=== PATIENT | male | born 1945 | race Native Hawaiian/Other Pacific Islander ===

== ENCOUNTER 2016-05-26 09:28 | Outpatient (CLI) | payer OTHER ==
[~2016-05-26] VITALS: Ht 177.8 cm; Wt 88.5 kg
[2016-05-26 09:35] VITALS: BP 160/87; TEMP 97.8
== END 2016-05-26 20:10 | disposition home or self-care (01) ==
LOC: INF 09:28
DX: I87.2 Venous insufficiency (chronic) (peripheral) (principal)
CPT/HCPCS: 96374; J1642

== ENCOUNTER 2016-06-14 08:50 | Outpatient (CLI) | payer OTHER ==
[2016-06-14 11:20] LABS: PLATELET COUNT 165 K/uL (142-355)
[2016-06-14 11:45] LABS: POTASSIUM 5.2 mmol/L (3.6-5.2)
== END 2016-06-14 20:10 | disposition home or self-care (01) ==
LOC: INF 08:50 → LAB 08:50 → US 08:50 → INF 20:10
PROVIDERS: Emergency Medicine
DX: R31.9 Hematuria, unspecified (principal); D63.1 Anemia in chronic kidney disease; E87.70 Fluid overload, unspecified; E87.5 Hyperkalemia; E78.4 Other hyperlipidemia; I10 Essential (primary) hypertension; E87.1 Hypo-osmolality and hyponatremia; E79.0 Hyperuricemia without signs of inflammatory arthritis and tophaceous disease
CPT/HCPCS: 80061; 80069; 81000; 82043; 82570; 82728; 83516; 83540; 83550; 84155; 84550; 85027; 85651; 86140; 86255; 96374

== ENCOUNTER 2016-07-27 09:59 | Outpatient (CLI) | payer OTHER ==
[~2016-07-27] VITALS: Ht 177.8 cm; Wt 88.5 kg
[2016-07-27 10:20] VITALS: BP 122/76; TEMP 98.3
== END 2016-07-27 10:59 | disposition home or self-care (01) ==
LOC: INF 09:59
DX: I87.2 Venous insufficiency (chronic) (peripheral) (principal)
CPT/HCPCS: 96523; J1642

== ENCOUNTER 2016-09-30 10:07 | Outpatient (CLI) | payer OTHER ==
[2016-09-30 14:58] VITALS: BP 128/72; TEMP 98.1
== END 2016-09-30 10:36 | disposition home or self-care (01) ==
LOC: INF 10:07
DX: I87.2 Venous insufficiency (chronic) (peripheral) (principal)
CPT/HCPCS: 96374; J1642

== ENCOUNTER 2016-11-11 09:50 | Outpatient (CLI) | payer OTHER ==
[2016-11-11 10:40] VITALS: BP 140/77; TEMP 97.6
== END 2016-11-11 10:35 | disposition home or self-care (01) ==
LOC: INF 09:50
DX: I87.2 Venous insufficiency (chronic) (peripheral) (principal)
CPT/HCPCS: 96523; J1642

== ENCOUNTER 2016-12-23 10:05 | Outpatient (CLI) | payer OTHER ==
[~2016-12-23] VITALS: Ht 177.8 cm; Wt 88.5 kg
[2016-12-23 10:40] VITALS: BP 140/73; TEMP 97.9
== END 2016-12-23 19:00 | disposition home or self-care (01) ==
LOC: INF 10:05
DX: I87.2 Venous insufficiency (chronic) (peripheral) (principal)
CPT/HCPCS: 96523; J1642

== ENCOUNTER 2017-02-03 09:52 | Outpatient (CLI) | payer OTHER ==
[2017-02-03 10:15] VITALS: BP 148/78; TEMP 97.6
== END 2017-02-03 10:20 | disposition home or self-care (01) ==
LOC: INF 09:52
DX: I87.2 Venous insufficiency (chronic) (peripheral) (principal); D63.1 Anemia in chronic kidney disease
CPT/HCPCS: 96523

== ENCOUNTER 2017-02-17 10:12 | Outpatient (CLI) | payer OTHER ==
[2017-02-17 11:01] LABS: PLATELET COUNT 228 K/uL (142-355)
[2017-02-17 11:41] LABS: POTASSIUM 5.4 mmol/L (3.6-5.2)
== END 2017-02-17 13:30 | disposition home or self-care (01) ==
LOC: INF 10:12
PROVIDERS: Internal Medicine
DX: E87.5 Hyperkalemia (principal); I10 Essential (primary) hypertension; N18.4 Chronic kidney disease, stage 4 (severe); R31.9 Hematuria, unspecified; E79.0 Hyperuricemia without signs of inflammatory arthritis and tophaceous disease
CPT/HCPCS: 36591; 80048; 80061; 80076; 81000; 82043; 82570; 82652; 82728; 83036; 83516; 83540; 83550; 83970; 84100; 84155; 84550; 85027; 85651; 86039; 86140; 86225; 86235

== ENCOUNTER 2017-03-31 09:39 | Outpatient (CLI) | payer OTHER ==
[2017-03-31 10:05] VITALS: BP 125/76; TEMP 98
== END 2017-03-31 10:05 | disposition home or self-care (01) ==
LOC: INF 09:39
DX: I87.2 Venous insufficiency (chronic) (peripheral) (principal)
CPT/HCPCS: 96523

== ENCOUNTER 2017-05-12 09:30 | Outpatient (CLI) | payer OTHER | END 2017-05-12 10:02 | disposition home or self-care (01) | LOC: INF 09:30 | DX: I87.2 Venous insufficiency (chronic) (peripheral) (principal) | CPT/HCPCS: 96374; J1642 ==

== ENCOUNTER 2017-05-23 06:45 | Emergency (ER) | payer OTHER ==
[~2017-05-23] VITALS: Ht 177.8 cm; Wt 90.7 kg
[2017-05-23 06:55] VITALS: TEMP 97.9
[2017-05-23 07:36] LABS: PLATELET COUNT 113 K/uL (142-355)
[2017-05-23 07:52] LABS: POTASSIUM 5.1 mmol/L (3.6-5.2)
[2017-05-23 08:36] VITALS: BP 144/81
== END 2017-05-23 08:38 | disposition home or self-care (01) ==
LOC: ED 06:45
DX: J06.9 Acute upper respiratory infection, unspecified (principal); N04.9 Nephrotic syndrome with unspecified morphologic changes
CPT/HCPCS: 36415; 80053; 83880; 85027; 87081; 87804; 87880; 94664; 96360; 96361; 99284; J1642

== ENCOUNTER 2017-05-27 19:46 | Inpatient (IN) | payer OTHER ==
[~2017-05-27] VITALS: Ht 177.8 cm; Wt 87.7 kg
[2017-05-27 19:55] VITALS: BP 144/85; TEMP 97.5
[2017-05-27 20:55] VITALS: BP 142/88
[2017-05-27] MEDS ORDERED: COATED ASPIRIN325 MG PO (21:21)
[2017-05-27] MEDS ORDERED: LIPITOR80 MG PO (21:22)
[2017-05-27] MEDS ORDERED: NEXIUM20 M1 PO (21:22)
[2017-05-27] MEDS ORDERED: CALC ACETATE668 MG (21:23)
[2017-05-27] MEDS ORDERED: CARV3.12 PO (21:23)
[2017-05-27] MEDS ORDERED: MAGNESIUM400 MG OR (21:24)
[2017-05-27] MEDS ORDERED: MAGNESIUM400 M1 PO (21:24)
[2017-05-27] MEDS ORDERED: SAW PALMETTO160 M1 OR (21:24)
[2017-05-27] MEDS ORDERED: D32000 UNI1 OR (21:24)
[2017-05-27] MEDS ORDERED: CITA20TA2 PO (21:25)
[2017-05-27] MEDS ORDERED: ALLO100T22 PO (21:26)
[2017-05-27] MEDS ORDERED: ALPR0.2566 PO (21:26)
[2017-05-27] MEDS ORDERED: ZOFRAN8 MG OR (21:27)
[2017-05-27] MEDS ORDERED: TYLENOL325 MG OR (21:27)
[2017-05-27] MEDS ORDERED: ANTIHISTAMIN25 MG PO (21:28)
[2017-05-27 21:55] VITALS: BP 138/86
[2017-05-27 22:12] LABS: PLATELET COUNT 312 K/uL (142-355)
[2017-05-27 22:34] LABS: SODIUM 130 mmol/L (136-145)
[2017-05-27 22:41] LABS: POTASSIUM 6.6 mmol/L (3.6-5.2)
[2017-05-27 23:50] VITALS: BP 143/89
[2017-05-28 01:10] VITALS: BP 141/77; TEMP 97.7; Ht 177.8 cm; Wt 87.7 kg
[2017-05-28] MEDS ORDERED: CELLCEPT500 MG PO (03:28)
[2017-05-28] MEDS ORDERED: DOXYCYCL HYC100 MG OR (03:29)
[2017-05-28 04:00] VITALS: BP 134/80; TEMP 97.9
[2017-05-28 05:06] LABS: PLATELET COUNT 323 K/uL (142-355)
[2017-05-28 05:40] LABS: POTASSIUM 6.4 mmol/L (3.6-5.2)
[2017-05-28 11:18] VITALS: BP 142/76; TEMP 98.4
[2017-05-28 19:31] LABS: POTASSIUM 3.8 mmol/L (3.6-5.2)
[2017-05-28 20:00] VITALS: BP 185/98; TEMP 98.3
[2017-05-29] VITALS: BP 171/93; TEMP 98.5
[2017-05-29 04:00] VITALS: BP 167/90; TEMP 97.5
[2017-05-29 08:13] VITALS: BP 146/87; TEMP 97.8
[2017-05-29 12:48] LABS: POTASSIUM 3.7 mmol/L (3.6-5.2)
[2017-05-29 12:53] VITALS: BP 155/77; TEMP 98
[2017-05-29 20:00] VITALS: BP 122/77; TEMP 97.8
[2017-05-30] VITALS: BP 158/85; TEMP 98
[2017-05-30 04:00] VITALS: BP 144/82; TEMP 97.5
[2017-05-30 08:51] VITALS: BP 150/82; TEMP 98.8
[2017-05-30 13:38] VITALS: BP 165/92; TEMP 97
== END 2017-05-30 14:52 | disposition home or self-care (01) | DRG 191 ==
LOC: ED 19:46 → MED/SURG 23:01
PROVIDERS: Family Medicine; ADMIT Specialist
DX: J44.0 Chronic obstructive pulmonary disease with (acute) lower respiratory infection (principal); N18.4 Chronic kidney disease, stage 4 (severe); E87.5 Hyperkalemia; I12.9 Hypertensive chronic kidney disease with stage 1 through stage 4 chronic kidney disease, or unspecified chronic kidney disease; D64.89 Other specified anemias; K21.9 Gastro-esophageal reflux disease without esophagitis; J20.9 Acute bronchitis, unspecified; R41.0 Disorientation, unspecified
CPT/HCPCS: 36415; 36591; 36600; 80048; 80053; 81000; 82805; 83735; 83880; 84100; 84484; 85027; 87804; 93005; 94640; 94664; 94760; 96372; 99283; J1644; J2930; J3490

== ENCOUNTER 2017-06-08 09:18 | Outpatient (CLI) | payer OTHER ==
[~2017-06-08 09:18] MED LIST: ALLO100T22 PO; ALPR0.2566 PO; ANTIHISTAMIN25 MG PO; CALC ACETATE668 MG; CARV3.12 PO; CELLCEPT500 MG PO; CITA20TA2 PO; COATED ASPIRIN325 MG PO; D32000 UNI1 OR; DOXYCYCL HYC100 MG OR; LIPITOR80 MG PO; MAGNESIUM400 M1 PO; MAGNESIUM400 MG OR; NEXIUM20 M1 PO; SAW PALMETTO160 M1 OR; TYLENOL325 MG OR; ZOFRAN8 MG OR
[2017-06-08 10:25] LABS: PLATELET COUNT 333 K/uL (142-355)
[2017-06-08 10:59] LABS: POTASSIUM 4.8 mmol/L (3.6-5.2)
== END 2017-06-08 19:20 | disposition home or self-care (01) ==
LOC: INF 09:18 → LABW 09:18 → INF 19:20
PROVIDERS: Emergency Medicine
DX: I87.2 Venous insufficiency (chronic) (peripheral) (principal); E11.9 Type 2 diabetes mellitus without complications; E87.79 Other fluid overload; N00.8 Acute nephritic syndrome with other morphologic changes; E79.0 Hyperuricemia without signs of inflammatory arthritis and tophaceous disease
CPT/HCPCS: 36591; 80053; 80061; 81000; 82043; 82570; 82728; 83516; 83540; 83550; 84155; 84550; 85027; 86140; 86255; 96374; J1642

== ENCOUNTER 2017-07-20 09:51 | Outpatient (CLI) | payer OTHER ==
[2017-07-20 09:56] VITALS: BP 123/68; TEMP 97.8
== END 2017-07-20 10:16 | disposition home or self-care (01) ==
LOC: INF 09:51
DX: I87.2 Venous insufficiency (chronic) (peripheral) (principal)
CPT/HCPCS: 96523

== ENCOUNTER 2017-07-27 11:17 | Day surgery (SDC) | payer OTHER | END 2017-07-27 16:02 | disposition home or self-care (01) | LOC: OR 11:17 | PROC: 0DJD8ZZ Inspection of Lower Intestinal Tract, Via Natural or Artificial Opening Endoscopic (ICD-10-PCS; principal; 2017-07-27) | DX: K57.30 Diverticulosis of large intestine without perforation or abscess without bleeding (principal); K64.8 Other hemorrhoids; Z12.11 Encounter for screening for malignant neoplasm of colon; Z80.0 Family history of malignant neoplasm of digestive organs; Z87.898 Personal history of other specified conditions | CPT/HCPCS: J1642; J2001; J2704 ==

== ENCOUNTER 2017-08-31 09:46 | Outpatient (CLI) | payer OTHER | END 2017-08-31 10:31 | disposition home or self-care (01) | LOC: INF 09:46 | DX: I87.2 Venous insufficiency (chronic) (peripheral) (principal) | CPT/HCPCS: 96374 ==

== ENCOUNTER 2017-10-12 09:52 | Outpatient (CLI) | payer OTHER | END 2017-10-12 19:21 | disposition home or self-care (01) | LOC: INF 09:52 | DX: I87.2 Venous insufficiency (chronic) (peripheral) (principal) | CPT/HCPCS: 96374 ==

== ENCOUNTER 2017-10-31 09:45 | Outpatient (CLI) | payer OTHER ==
[2017-10-31 10:59] LABS: PLATELET COUNT 241 K/uL (142-355)
[2017-10-31 11:32] LABS: POTASSIUM 6.1 mmol/L (3.6-5.2)
== END 2017-10-31 20:20 | disposition home or self-care (01) ==
LOC: INF 09:45
PROVIDERS: Internal Medicine Nephrology
DX: I87.2 Venous insufficiency (chronic) (peripheral) (principal); E11.9 Type 2 diabetes mellitus without complications; E87.5 Hyperkalemia; D63.1 Anemia in chronic kidney disease
CPT/HCPCS: 36591; 80061; 80069; 81000; 82043; 82570; 82728; 83516; 83540; 83550; 84155; 84550; 85027; 86140; 86255; 96374

== ENCOUNTER 2017-11-21 09:39 | Outpatient (CLI) | payer OTHER ==
[2017-11-21 09:50] VITALS: BP 148/90; TEMP 98.8
[2017-11-21 10:44] LABS: POTASSIUM 4.4 mmol/L (3.6-5.2)
== END 2017-11-21 22:00 | disposition home or self-care (01) ==
LOC: INF 09:39
PROVIDERS: Family Medicine
DX: I12.9 Hypertensive chronic kidney disease with stage 1 through stage 4 chronic kidney disease, or unspecified chronic kidney disease (principal); N18.4 Chronic kidney disease, stage 4 (severe); I87.2 Venous insufficiency (chronic) (peripheral)
CPT/HCPCS: 36591; 80069; 96374

== ENCOUNTER 2018-01-02 09:41 | Outpatient (CLI) | payer OTHER ==
[2018-01-02 09:50] VITALS: BP 124/73; TEMP 98.3
== END 2018-01-02 23:21 | disposition home or self-care (01) ==
LOC: INF 09:41
DX: I87.2 Venous insufficiency (chronic) (peripheral) (principal)
CPT/HCPCS: 96523

== ENCOUNTER 2018-02-13 09:18 | Outpatient (CLI) | payer OTHER | END 2018-02-13 19:51 | disposition home or self-care (01) | LOC: INF 09:18 | DX: I87.2 Venous insufficiency (chronic) (peripheral) (principal) | CPT/HCPCS: 96374; J1642 ==

== ENCOUNTER 2018-03-28 10:37 | Outpatient (CLI) | payer OTHER ==
[2018-03-28 11:37] LABS: PLATELET COUNT 238 K/uL (142-355)
== END 2018-03-28 21:26 | disposition home or self-care (01) ==
LOC: INF 10:37
PROVIDERS: Internal Medicine
DX: I10 Essential (primary) hypertension (principal); E78.00 Pure hypercholesterolemia, unspecified; N18.9 Chronic kidney disease, unspecified; Z00.00 Encounter for general adult medical examination without abnormal findings; Z12.5 Encounter for screening for malignant neoplasm of prostate; Z43.8 Encounter for attention to other artificial openings
CPT/HCPCS: 80053; 80061; 81000; 84153; 84439; 84443; 84550; 85027; 96374; J1642

== ENCOUNTER 2018-04-05 09:39 | Outpatient (CLI) | payer OTHER ==
[2018-04-05 09:48] VITALS: BP 157/81; TEMP 98
[2018-04-05 10:41] LABS: POTASSIUM 4.3 mmol/L (3.6-5.2)
== END 2018-04-05 10:25 | disposition home or self-care (01) ==
LOC: INF 09:39
PROVIDERS: Emergency Medicine
DX: N18.4 Chronic kidney disease, stage 4 (severe) (principal)
CPT/HCPCS: 36415; 36591; 80048; 96374

== ENCOUNTER 2018-04-12 09:10 | Outpatient (CLI) | payer OTHER ==
[2018-04-12 09:30] VITALS: BP 161/82; TEMP 97.9
== END 2018-04-12 10:10 | disposition home or self-care (01) ==
LOC: INF 09:10
PROVIDERS: Emergency Medicine
DX: M18.4 Other bilateral secondary osteoarthritis of first carpometacarpal joints (principal); E87.5 Hyperkalemia
CPT/HCPCS: 36415; 36591; 80048; 96374

== ENCOUNTER 2018-04-20 08:29 | Outpatient (CLI) | payer OTHER | END 2018-04-20 19:20 | disposition home or self-care (01) | LOC: CT 08:29 | DX: Z12.2 Encounter for screening for malignant neoplasm of respiratory organs (principal); J44.9 Chronic obstructive pulmonary disease, unspecified ==

== ENCOUNTER 2018-05-16 09:48 | Outpatient (CLI) | payer OTHER ==
[2018-05-16 10:20] VITALS: BP 145/86; TEMP 98.1
[2018-05-16 10:54] LABS: POTASSIUM 5.6 mmol/L (3.6-5.2)
== END 2018-05-16 10:25 | disposition home or self-care (01) ==
LOC: INF 09:48
PROVIDERS: Family Medicine
DX: N18.9 Chronic kidney disease, unspecified (principal); N18.4 Chronic kidney disease, stage 4 (severe); R31.9 Hematuria, unspecified; E87.5 Hyperkalemia; E78.5 Hyperlipidemia, unspecified; I10 Essential (primary) hypertension; E87.1 Hypo-osmolality and hyponatremia; I87.2 Venous insufficiency (chronic) (peripheral)
CPT/HCPCS: 36591; 80048; 82043; 82570; 84155; 96375

== ENCOUNTER 2018-06-22 09:03 | Outpatient (CLI) | payer OTHER ==
[2018-06-22 11:28] LABS: PLATELET COUNT 236 K/uL (142-355)
[2018-06-22 11:50] LABS: POTASSIUM 5.3 mmol/L (3.6-5.2)
== END 2018-06-22 10:47 | disposition home or self-care (01) ==
LOC: INF 09:03
PROVIDERS: Internal Medicine Nephrology
DX: I87.2 Venous insufficiency (chronic) (peripheral) (principal); N18.9 Chronic kidney disease, unspecified
CPT/HCPCS: 36591; 80061; 80069; 81000; 82043; 82570; 82728; 83516; 83540; 83550; 83930; 83935; 84155; 84300; 84550; 85027; 85651; 86140; 86255; 96374; J1642

== ENCOUNTER 2018-07-04 14:48 | Outpatient (CLI) | payer OTHER | END 2018-07-04 19:42 | disposition home or self-care (01) | LOC: US 14:48 | DX: N18.4 Chronic kidney disease, stage 4 (severe) (principal) ==

== ENCOUNTER 2018-07-10 11:33 | Outpatient (CLI) | payer OTHER | END 2018-07-10 22:40 | disposition home or self-care (01) | LOC: RAD 11:33 | DX: J40 Bronchitis, not specified as acute or chronic (principal) ==

== ENCOUNTER 2018-07-13 06:55 | Emergency (ER) | payer OTHER ==
[~2018-07-13] VITALS: Ht 180.3 cm; Wt 81.6 kg
[2018-07-13 06:55] VITALS: TEMP 97.5
[2018-07-13 07:33] LABS: PLATELET COUNT 303 K/uL (142-355)
[2018-07-13] MEDS ORDERED: DOCU100C10 PO (07:36)
[2018-07-13] MEDS ORDERED: PROFERRIN- PO (07:36)
[2018-07-13] MEDS ORDERED: DILT-XR180 MG PO (07:37)
[2018-07-13] MEDS ORDERED: [UNRECOGNIZED DRUG - OTHER] PO (07:37)
[2018-07-13] MEDS ORDERED: SODIUM BICARBONATE PO (07:38)
[2018-07-13 07:44] LABS: POTASSIUM 4.3 mmol/L (3.6-5.2)
[2018-07-13 10:05] VITALS: BP 156/84
== END 2018-07-13 10:05 | disposition short-term general hospital (02) ==
LOC: ED 06:55
PROVIDERS: Emergency Medicine
DX: R41.82 Altered mental status, unspecified (principal); N28.9 Disorder of kidney and ureter, unspecified
CPT/HCPCS: 36415; 80053; 80307; 81000; 85027; 93005; 96360; 99283

== ENCOUNTER 2018-07-13 10:06 | Outpatient (CLI) | payer OTHER ==
[~2018-07-13 10:06] MED LIST changes: +DILT-XR180 MG PO; +DOCU100C10 PO; +PROFERRIN- PO; +SODIUM BICARBONATE PO; +[UNRECOGNIZED DRUG - OTHER] PO
== END 2018-07-13 11:15 | disposition short-term general hospital (02) ==
LOC: AMB 10:06
DX: R44.2 Other hallucinations (principal); N18.9 Chronic kidney disease, unspecified; R41.82 Altered mental status, unspecified
CPT/HCPCS: A0425; A0427

== ENCOUNTER 2018-08-31 09:17 | Outpatient (CLI) | payer OTHER ==
[2018-08-31 09:25] VITALS: BP 146/77; TEMP 98.7
[2018-08-31 10:07] LABS: POTASSIUM 5.2 mmol/L (3.6-5.2)
== END 2018-08-31 09:45 | disposition home or self-care (01) ==
LOC: INF 09:17
PROVIDERS: Internal Medicine Nephrology
DX: I87.2 Venous insufficiency (chronic) (peripheral) (principal); N18.4 Chronic kidney disease, stage 4 (severe); K64.0 First degree hemorrhoids
CPT/HCPCS: 36591; 80048; 82272; 96374

== ENCOUNTER 2018-09-28 09:09 | Outpatient (CLI) | payer OTHER ==
[2018-09-28 09:20] VITALS: BP 132/65; TEMP 98.4
[2018-09-28 11:00] LABS: PLATELET COUNT 139 K/uL (142-355)
[2018-09-28 11:34] LABS: POTASSIUM 6.1 mmol/L (3.6-5.2)
== END 2018-09-28 09:50 | disposition home or self-care (01) ==
LOC: INF 09:09
PROVIDERS: Internal Medicine
DX: I87.2 Venous insufficiency (chronic) (peripheral) (principal); I12.9 Hypertensive chronic kidney disease with stage 1 through stage 4 chronic kidney disease, or unspecified chronic kidney disease; D63.1 Anemia in chronic kidney disease; N18.4 Chronic kidney disease, stage 4 (severe); N40.0 Benign prostatic hyperplasia without lower urinary tract symptoms; E87.79 Other fluid overload; E78.49 Other hyperlipidemia; R80.8 Other proteinuria
CPT/HCPCS: 36591; 80061; 80069; 81000; 82043; 82570; 82728; 83516; 83540; 83550; 83970; 84153; 84155; 84550; 85027; 85651; 86038; 86140; 86255; 96375

== ENCOUNTER 2018-10-23 09:37 | Outpatient (CLI) | payer OTHER ==
[2018-10-23 10:05] VITALS: BP 120/73; TEMP 98.3
== END 2018-10-23 23:35 | disposition home or self-care (01) ==
LOC: INF 09:37
PROVIDERS: Internal Medicine
DX: N18.4 Chronic kidney disease, stage 4 (severe) (principal); E87.5 Hyperkalemia; I10 Essential (primary) hypertension; E87.1 Hypo-osmolality and hyponatremia
CPT/HCPCS: 36591; 80069; 96374

== ENCOUNTER 2018-10-30 09:01 | Outpatient (CLI) | payer OTHER ==
[2018-10-30 10:14] VITALS: BP 129/68; TEMP 98.7
[2018-10-30 11:07] LABS: POTASSIUM 3.9 mmol/L (3.6-5.2)
== END 2018-10-30 10:46 | disposition home or self-care (01) ==
LOC: INF 09:01
PROVIDERS: Family Medicine
DX: N18.9 Chronic kidney disease, unspecified (principal); N18.4 Chronic kidney disease, stage 4 (severe); R31.9 Hematuria, unspecified; E87.5 Hyperkalemia; E78.5 Hyperlipidemia, unspecified; E87.2 Acidosis; R00.1 Bradycardia, unspecified; I87.2 Venous insufficiency (chronic) (peripheral)
CPT/HCPCS: 36591; 80048; 96374

== ENCOUNTER 2018-11-08 10:54 | Outpatient (CLI) | payer OTHER ==
[2018-11-08 11:10] VITALS: BP 148/72; TEMP 98.2
[2018-11-08 12:40] LABS: POTASSIUM 3.6 mmol/L (3.6-5.2)
== END 2018-11-08 11:25 | disposition home or self-care (01) ==
LOC: INF 10:54
PROVIDERS: Family Medicine
DX: I87.2 Venous insufficiency (chronic) (peripheral) (principal); N18.9 Chronic kidney disease, unspecified; N18.4 Chronic kidney disease, stage 4 (severe); R31.9 Hematuria, unspecified; E87.5 Hyperkalemia; E78.5 Hyperlipidemia, unspecified; R00.1 Bradycardia, unspecified; E09.9 Drug or chemical induced diabetes mellitus without complications
CPT/HCPCS: 36591; 80048; 96374

== ENCOUNTER 2018-11-17 09:30 | Outpatient (CLI) | payer OTHER ==
[2018-11-17 10:00] VITALS: BP 135/73; TEMP 98.7
[2018-11-17 10:24] LABS: PLATELET COUNT 208 K/uL (142-355)
[2018-11-17 10:52] LABS: POTASSIUM 4.4 mmol/L (3.6-5.2)
== END 2018-11-17 19:08 | disposition home or self-care (01) ==
LOC: LABW 09:30
PROVIDERS: Internal Medicine Nephrology
DX: N18.4 Chronic kidney disease, stage 4 (severe) (principal); N05.9 Unspecified nephritic syndrome with unspecified morphologic changes; E78.5 Hyperlipidemia, unspecified; I10 Essential (primary) hypertension
CPT/HCPCS: 36591; 80061; 80069; 81000; 82043; 82570; 82728; 83540; 83550; 84155; 84550; 85027; 86140; 96374

== ENCOUNTER 2018-11-20 11:08 | Outpatient (CLI) | payer OTHER | END 2018-11-21 05:51 | disposition home or self-care (01) | LOC: RAD 11:08 | DX: M25.511 Pain in right shoulder (principal) ==

== ENCOUNTER 2018-12-14 08:38 | Outpatient (CLI) | payer OTHER ==
[2018-12-14 09:45] VITALS: BP 143/79; TEMP 98
[2018-12-14 10:34] LABS: PLATELET COUNT 229 K/uL (142-355)
[2018-12-14 11:11] LABS: POTASSIUM 5.6 mmol/L (3.6-5.2)
== END 2018-12-14 14:59 | disposition home or self-care (01) ==
LOC: INF 08:38 → CT 08:38
PROVIDERS: Internal Medicine Nephrology
DX: I87.2 Venous insufficiency (chronic) (peripheral) (principal); I10 Essential (primary) hypertension; N18.5 Chronic kidney disease, stage 5; E78.5 Hyperlipidemia, unspecified; I51.7 Cardiomegaly; Z72.0 Tobacco use; I25.10 Atherosclerotic heart disease of native coronary artery without angina pectoris
CPT/HCPCS: 36415; 36591; 80061; 80069; 81000; 82043; 82570; 82728; 83540; 83550; 84155; 84550; 85027; 86140; 96374

== ENCOUNTER 2019-01-29 10:17 | Outpatient (CLI) | payer OTHER ==
[2019-01-29 10:38] VITALS: BP 121/65; TEMP 98.6
== END 2019-01-29 22:09 | disposition home or self-care (01) ==
LOC: INF 10:17
DX: I87.2 Venous insufficiency (chronic) (peripheral) (principal)
CPT/HCPCS: 96523

== ENCOUNTER 2019-03-13 09:46 | Outpatient (CLI) | payer OTHER ==
[2019-03-13 09:52] VITALS: BP 114/64; TEMP 98.7
== END 2019-03-13 10:18 | disposition home or self-care (01) ==
LOC: INF 09:46
DX: I87.2 Venous insufficiency (chronic) (peripheral) (principal)
CPT/HCPCS: 96523

== ENCOUNTER 2019-04-02 10:04 | Outpatient (CLI) | payer OTHER ==
[2019-04-02 10:15] VITALS: BP 118/70; TEMP 98.4
[2019-04-02 10:59] LABS: PLATELET COUNT 212 K/uL (142-355)
[2019-04-02 11:07] LABS: POTASSIUM 4.7 mmol/L (3.6-5.2)
== END 2019-04-02 10:45 | disposition home or self-care (01) ==
LOC: INF 10:04
PROVIDERS: Internal Medicine
DX: N18.5 Chronic kidney disease, stage 5 (principal); I10 Essential (primary) hypertension; N40.0 Benign prostatic hyperplasia without lower urinary tract symptoms; I87.2 Venous insufficiency (chronic) (peripheral)
CPT/HCPCS: 36591; 80053; 80061; 81000; 84153; 84439; 84443; 85027; 96374

== ENCOUNTER 2019-05-14 10:22 | Outpatient (CLI) | payer OTHER ==
[2019-05-14 10:25] VITALS: BP 125/74; TEMP 97.8
== END 2019-05-14 10:45 | disposition home or self-care (01) ==
LOC: INF 10:22
DX: I87.2 Venous insufficiency (chronic) (peripheral) (principal)
CPT/HCPCS: 96523

== ENCOUNTER 2019-06-22 12:20 | Outpatient (CLI) | payer OTHER | END 2019-06-22 19:12 | disposition home or self-care (01) | LOC: RAD 12:20 | DX: M54.5 Low back pain (principal); M79.604 Pain in right leg ==

== ENCOUNTER 2019-06-29 10:29 | Outpatient (CLI) | payer OTHER ==
[2019-06-29 10:35] VITALS: BP 102/52; TEMP 97.6
== END 2019-06-29 10:50 | disposition home or self-care (01) ==
LOC: INF 10:29
DX: I87.2 Venous insufficiency (chronic) (peripheral) (principal)
CPT/HCPCS: 96523

== ENCOUNTER 2019-10-16 08:52 | Outpatient (CLI) | payer OTHER ==
[2019-10-16 08:55] VITALS: BP 107/60; TEMP 97.8
== END 2019-10-16 09:15 | disposition home or self-care (01) ==
LOC: INF 08:52
DX: I87.2 Venous insufficiency (chronic) (peripheral) (principal); K64.0 First degree hemorrhoids
CPT/HCPCS: 82272; 96523

== ENCOUNTER 2019-10-26 10:14 | Outpatient (CLI) | payer OTHER ==
[2019-10-26 10:25] VITALS: BP 112/66; TEMP 97.6
== END 2019-10-26 19:35 | disposition home or self-care (01) ==
LOC: INF 10:14 → LABW 10:14
DX: R53.1 Weakness (principal); M25.50 Pain in unspecified joint
CPT/HCPCS: 36591; 85651; 86140; 96374

== ENCOUNTER 2019-12-20 09:24 | Outpatient (CLI) | payer OTHER ==
[2019-12-20 10:00] VITALS: BP 121/79; TEMP 98
[2019-12-20 10:52] LABS: PLATELET COUNT 407 K/uL (142-355)
[2019-12-20 11:06] LABS: POTASSIUM 3.5 mmol/L (3.6-5.2)
== END 2019-12-20 21:51 | disposition home or self-care (01) ==
LOC: INF 09:24 → CT 09:24 → INF 21:51
PROVIDERS: Internal Medicine Endocrinology, Diabetes & Metabolism
DX: R09.02 Hypoxemia (principal); M31.31 Wegener's granulomatosis with renal involvement; Z79.899 Other long term (current) drug therapy
CPT/HCPCS: 36415; 36591; 80053; 85027; 96374

== ENCOUNTER 2019-12-28 10:31 | Outpatient (CLI) | payer OTHER ==
[2019-12-28 10:35] VITALS: BP 114/63; TEMP 98.3
[2019-12-28 11:10] LABS: POTASSIUM 3.3 mmol/L (3.6-5.2)
[2019-12-28 12:01] LABS: PLATELET COUNT 488 K/uL (142-355)
== END 2019-12-28 10:50 | disposition home or self-care (01) ==
LOC: INF 10:31
PROVIDERS: Internal Medicine Rheumatology
DX: M31.31 Wegener's granulomatosis with renal involvement (principal)
CPT/HCPCS: 36591; 80053; 85007; 85027; 96374

== ENCOUNTER 2020-01-03 09:49 | Outpatient (CLI) | payer OTHER ==
[2020-01-03 10:05] VITALS: BP 138/84; TEMP 98.4
[2020-01-03 10:37] LABS: PLATELET COUNT 422 K/uL (142-355)
[2020-01-03 10:54] LABS: POTASSIUM 3.4 mmol/L (3.6-5.2)
== END 2020-01-03 10:22 | disposition home or self-care (01) ==
LOC: INF 09:49
PROVIDERS: Internal Medicine
DX: M31.31 Wegener's granulomatosis with renal involvement (principal)
CPT/HCPCS: 36591; 80053; 85027; 96374

== ENCOUNTER 2020-01-28 09:04 | Outpatient (CLI) | payer OTHER ==
[2020-01-28 10:15] VITALS: BP 108/80; TEMP 98.1
== END 2020-01-28 11:00 | disposition home or self-care (01) ==
LOC: INF 09:04
DX: D68.59 Other primary thrombophilia (principal); M31.31 Wegener's granulomatosis with renal involvement; M35.3 Polymyalgia rheumatica; R53.82 Chronic fatigue, unspecified
CPT/HCPCS: 36415; 82784; 83516; 85651; 86140; 86255; 86317; 86480; 86701; 86702; 86704; 86803; 87389; 96374

== ENCOUNTER 2020-03-14 12:46 | Outpatient (CLI) | payer OTHER ==
[2020-03-14 13:00] VITALS: BP 137/81; TEMP 97.7
[2020-03-14 13:21] LABS: PLATELET COUNT 301 K/uL (142-355)
[2020-03-14 13:32] LABS: POTASSIUM 3.9 mmol/L (3.6-5.2)
== END 2020-03-14 13:18 | disposition home or self-care (01) ==
LOC: INF 12:46
PROVIDERS: ATTEND Internal Medicine
DX: D68.59 Other primary thrombophilia (principal); M31.31 Wegener's granulomatosis with renal involvement; M35.3 Polymyalgia rheumatica; N18.6 End stage renal disease; R31.9 Hematuria, unspecified
CPT/HCPCS: 36415; 36591; 80053; 81000; 83516; 85027; 85651; 86140; 86255; 96374

== ENCOUNTER 2020-04-30 14:38 | Outpatient (CLI) | payer OTHER ==
[2020-04-30 14:50] VITALS: BP 153/80; TEMP 98.1
[2020-04-30 15:25] LABS: PLATELET COUNT 294 K/uL (142-355)
[2020-04-30 15:38] LABS: POTASSIUM 3.9 mmol/L (3.6-5.2)
== END 2020-04-30 21:46 | disposition home or self-care (01) ==
LOC: INF 14:38
PROVIDERS: ATTEND Internal Medicine
DX: D68.59 Other primary thrombophilia (principal); M31.31 Wegener's granulomatosis with renal involvement; M35.3 Polymyalgia rheumatica; Z79.899 Other long term (current) drug therapy; Z43.8 Encounter for attention to other artificial openings
CPT/HCPCS: 36591; 80053; 85027; 85652; 86140; 96374

== ENCOUNTER 2020-05-26 10:31 | Outpatient (CLI) | payer OTHER | END 2020-05-26 19:18 | disposition home or self-care (01) | LOC: US 10:31 | PROVIDERS: ATTEND Internal Medicine | DX: D45 Polycythemia vera (principal); N18.6 End stage renal disease ==

== ENCOUNTER 2020-05-28 11:36 | Outpatient (CLI) | payer OTHER ==
[2020-05-28 13:04] LABS: PLATELET COUNT 343 K/uL (142-355)
[2020-05-28 13:21] LABS: POTASSIUM 3.8 mmol/L (3.6-5.2)
== END 2020-05-28 21:55 | disposition home or self-care (01) ==
LOC: LABW 11:36
PROVIDERS: ATTEND Internal Medicine Rheumatology
DX: M31.31 Wegener's granulomatosis with renal involvement (principal); M35.3 Polymyalgia rheumatica; R76.0 Raised antibody titer
CPT/HCPCS: 36591; 80053; 82784; 85007; 85027; 85652; 86140; 96374; 96375

== ENCOUNTER 2020-05-29 14:38 | Outpatient (CLI) | payer OTHER | END 2020-05-29 20:11 | disposition home or self-care (01) | LOC: LABW 14:38 | PROVIDERS: ATTEND Internal Medicine Rheumatology | DX: D72.829 Elevated white blood cell count, unspecified (principal); R70.0 Elevated erythrocyte sedimentation rate; R79.82 Elevated C-reactive protein (CRP) | CPT/HCPCS: 36415; 82784; 84145; 87040 ==

== ENCOUNTER 2020-06-05 15:22 | Outpatient (CLI) | payer OTHER | END 2020-06-05 20:06 | disposition home or self-care (01) | LOC: INF 15:22 | PROVIDERS: ATTEND Internal Medicine Endocrinology, Diabetes & Metabolism | DX: Z23 Encounter for immunization (principal) | CPT/HCPCS: 96372 ==

== ENCOUNTER 2020-06-19 16:12 | Inpatient (IN) | payer OTHER ==
[2020-06-20 08:11] LABS: PLATELET COUNT 295 K/uL (142-355)
[2020-06-20 08:48] LABS: POTASSIUM 4.2 mmol/L (3.6-5.2)
== END 2020-06-23 11:17 | disposition still patient (30) ==
LOC: PAVC 16:12
PROVIDERS: ADMIT Internal Medicine; ATTEND Internal Medicine
DX: N18.6 End stage renal disease (principal); J44.9 Chronic obstructive pulmonary disease, unspecified; M62.81 Muscle weakness (generalized); R27.9 Unspecified lack of coordination; Z74.1 Need for assistance with personal care; R26.81 Unsteadiness on feet; F01.50 Vascular dementia, unspecified severity, without behavioral disturbance, psychotic disturbance, mood disturbance, and anxiety; M35.3 Polymyalgia rheumatica
CPT/HCPCS: 80053; 80061; 82306; 82607; 82728; 83540; 84153; 84443; 85027; 87081

== ENCOUNTER 2020-06-23 11:50 | Inpatient (IN) | payer OTHER | END 2020-06-24 10:00 | disposition home or self-care (01) | LOC: PAVC 11:50 | PROVIDERS: ADMIT Internal Medicine; ATTEND Internal Medicine | DX: N18.6 End stage renal disease (principal); J44.9 Chronic obstructive pulmonary disease, unspecified; M62.81 Muscle weakness (generalized); R27.9 Unspecified lack of coordination; Z74.1 Need for assistance with personal care; R26.81 Unsteadiness on feet; F01.50 Vascular dementia, unspecified severity, without behavioral disturbance, psychotic disturbance, mood disturbance, and anxiety; M35.3 Polymyalgia rheumatica ==

== ENCOUNTER 2020-07-01 13:40 | Outpatient (CLI) | payer OTHER | END 2020-07-01 19:25 | disposition home or self-care (01) | LOC: INF 13:40 | PROVIDERS: ATTEND Internal Medicine | DX: Z23 Encounter for immunization (principal) | CPT/HCPCS: 96372 ==

== ENCOUNTER 2021-02-21 10:41 | Emergency (ER) | payer OTHER ==
[~2021-02-21] VITALS: Ht 180.3 cm; Wt 90.7 kg
[~2021-02-21 10:41] MED LIST changes: -TYLENOL325 MG OR; +TYLENOL325 MG PO; -ZOFRAN8 MG OR; +ZOFRAN8 MG PO
[2021-02-21 10:54] VITALS: TEMP 98.3
[2021-02-21] MEDS ORDERED: LIPITOR40 MG PO (11:04)
[2021-02-21] MEDS ORDERED: DIALYVITE800 MG PO (11:04)
[2021-02-21] MEDS ORDERED: NEURONTIN 100M100 MG PO (11:05)
[2021-02-21] MEDS ORDERED: YUPELRI175 MCG/3 INH (11:05)
[2021-02-21] MEDS ORDERED: ASPIRIN 81 LOW81 MG PO (11:05)
[2021-02-21] MEDS ORDERED: PROAIR HFA INH (11:07)
[2021-02-21] MEDS ORDERED: ALLERGY4 MG PO (11:08)
[2021-02-21] MEDS ORDERED: MEGACE ES PO (11:08)
[2021-02-21 12:44] VITALS: BP 133/78
== END 2021-02-21 12:44 | disposition home or self-care (01) ==
LOC: ED 10:41
DX: S32.018A Other fracture of first lumbar vertebra, initial encounter for closed fracture (principal); W18.39XA Other fall on same level, initial encounter; Y92.098 Other place in other non-institutional residence as the place of occurrence of the external cause
CPT/HCPCS: 96372; 99283; J1170; J2405

== ENCOUNTER 2021-04-21 09:44 | Outpatient (CLI) | payer OTHER ==
[~2021-04-21] VITALS: Ht 177.8 cm; Wt 88.0 kg
[~2021-04-21 09:44] MED LIST changes: +ALLERGY4 MG PO; +ASPIRIN 81 LOW81 MG PO; +DIALYVITE800 MG PO; +LIPITOR40 MG PO; +MEGACE ES PO; +NEURONTIN 100M100 MG PO; +PROAIR HFA INH; +YUPELRI175 MCG/3 INH
== END 2021-04-21 19:02 | disposition home or self-care (01) ==
LOC: INF 09:44
PROVIDERS: ATTEND Internal Medicine Nephrology
DX: E86.0 Dehydration (principal)
CPT/HCPCS: 96360; 96375

== ENCOUNTER 2021-04-30 10:31 | Outpatient (CLI) | payer OTHER | END 2021-04-30 19:14 | disposition home or self-care (01) | LOC: INF 10:31 | PROVIDERS: ATTEND Internal Medicine | DX: E86.0 Dehydration (principal) | CPT/HCPCS: 96360 ==

== ENCOUNTER 2021-05-06 10:10 | Outpatient (CLI) | payer OTHER ==
[~2021-05-06] VITALS: Ht 177.8 cm; Wt 88.0 kg
== END 2021-05-06 18:54 | disposition home or self-care (01) ==
LOC: INF 10:10
PROVIDERS: ATTEND Internal Medicine Endocrinology, Diabetes & Metabolism
DX: E86.0 Dehydration (principal)
CPT/HCPCS: 96361; 96374; J1642

== ENCOUNTER 2021-05-13 10:25 | Outpatient (CLI) | payer OTHER | END 2021-05-13 19:02 | disposition home or self-care (01) | LOC: INF 10:25 | PROVIDERS: ATTEND Internal Medicine Endocrinology, Diabetes & Metabolism | DX: E86.0 Dehydration (principal) | CPT/HCPCS: 96361; 96374 ==

== ENCOUNTER 2021-05-21 10:23 | Outpatient (CLI) | payer OTHER | END 2021-05-21 20:46 | disposition home or self-care (01) | LOC: INF 10:23 | PROVIDERS: ATTEND Internal Medicine Nephrology | DX: E86.0 Dehydration (principal) | CPT/HCPCS: 96360; 96361; 96374; J1642 ==

== ENCOUNTER 2021-05-28 10:13 | Outpatient (CLI) | payer OTHER | END 2021-05-28 21:20 | disposition home or self-care (01) | LOC: INF 10:13 | PROVIDERS: ATTEND Internal Medicine Nephrology | DX: E86.0 Dehydration (principal) | CPT/HCPCS: 96361; 96374; J1642 ==

== ENCOUNTER 2021-06-11 09:44 | Outpatient (CLI) | payer OTHER | END 2021-06-11 19:10 | disposition home or self-care (01) | LOC: INF 09:44 | PROVIDERS: ATTEND Internal Medicine | DX: E86.0 Dehydration (principal) | CPT/HCPCS: 96360; J1642 ==

== ENCOUNTER 2021-06-18 09:40 | Outpatient (CLI) | payer OTHER ==
[2021-06-18 10:00] VITALS: BP 141/62; TEMP 98
== END 2021-06-18 19:52 | disposition home or self-care (01) ==
LOC: INF 09:40
PROVIDERS: ATTEND Internal Medicine
DX: E86.0 Dehydration (principal)
CPT/HCPCS: 96360; J1642

== ENCOUNTER 2021-07-03 13:13 | Outpatient (CLI) | payer OTHER ==
[~2021-07-03] VITALS: Ht 177.8 cm; Wt 88.0 kg
== END 2021-07-03 21:48 | disposition home or self-care (01) ==
LOC: INF 13:13
PROVIDERS: ATTEND Internal Medicine
DX: E86.0 Dehydration (principal)
CPT/HCPCS: 96365; J1642

== ENCOUNTER 2021-07-17 10:41 | Outpatient (CLI) | payer OTHER ==
[~2021-07-17] VITALS: Ht 177.8 cm; Wt 88.0 kg
== END 2021-07-17 19:54 | disposition home or self-care (01) ==
LOC: INF 10:41
PROVIDERS: ATTEND Internal Medicine
DX: E86.0 Dehydration (principal)
CPT/HCPCS: 96360; J1642

== ENCOUNTER 2021-08-14 10:12 | Outpatient (CLI) | payer OTHER ==
[~2021-08-14] VITALS: Ht 177.8 cm; Wt 88.0 kg
[2021-08-14 10:18] VITALS: BP 135/67; TEMP 98.3
== END 2021-08-14 20:29 | disposition home or self-care (01) ==
LOC: INF 10:12
PROVIDERS: ATTEND Internal Medicine
DX: E86.0 Dehydration (principal)

== ENCOUNTER 2021-08-20 09:15 | Outpatient (CLI) | payer OTHER | END 2021-08-20 21:58 | disposition home or self-care (01) | LOC: US 09:15 | PROVIDERS: ATTEND Internal Medicine Nephrology | DX: I71.4 Abdominal aortic aneurysm, without rupture (principal) ==

== ENCOUNTER 2021-08-28 09:39 | Outpatient (CLI) | payer OTHER ==
[~2021-08-28] VITALS: Ht 177.8 cm; Wt 1.8 kg
[2021-08-28 10:35] VITALS: BP 145/70; TEMP 98.3
== END 2021-08-28 19:58 | disposition home or self-care (01) ==
LOC: INF 09:39 → CT 09:39 → INF 19:58
PROVIDERS: ATTEND Internal Medicine
DX: E86.0 Dehydration (principal); Z11.1 Encounter for screening for respiratory tuberculosis; Z87.891 Personal history of nicotine dependence
CPT/HCPCS: 96360

== ENCOUNTER 2021-09-11 09:58 | Outpatient (CLI) | payer OTHER ==
[~2021-09-11] VITALS: Ht 177.8 cm; Wt 88.0 kg
== END 2021-09-11 18:55 | disposition home or self-care (01) ==
LOC: INF 09:58
PROVIDERS: ATTEND Internal Medicine
DX: E86.0 Dehydration (principal)
CPT/HCPCS: 96360; J1642

== ENCOUNTER 2021-09-25 10:18 | Outpatient (CLI) | payer OTHER ==
[~2021-09-25] VITALS: Ht 175.3 cm; Wt 88.0 kg
[2021-09-25 10:23] VITALS: BP 130/61; TEMP 98.6
--- NOTE | 2021-09-25 10:23 | NUR ---
PTAMBULATED WITH ROLLATOR ACCOMPANIED BY HIS TO ROOM 1128 FOR OP INFUSION OF NS 500ML PER MD ORDERS. VS OBTAINED PAC TO LCW ACCESSED WITH 20G WINGED MONROE NEEDLE. BLOOD ASPIRATED AND LINE FLUSHED WITH 10ML NS . SECURED WITH 4X4 TEGADERM.
--- NOTE | 2021-09-25 11:16 | NUR ---
NS INFUSING TO LCW WITH NO COMPLICATIONS
== END 2021-09-25 19:20 | disposition home or self-care (01) ==
LOC: INF 10:18
PROVIDERS: ATTEND Internal Medicine
DX: E86.0 Dehydration (principal)
CPT/HCPCS: 96360

== ENCOUNTER 2021-10-09 08:29 | Outpatient (CLI) | payer OTHER ==
[~2021-10-09] VITALS: Ht 175.3 cm; Wt 78.9 kg
[2021-10-09 09:59] VITALS: BP 135/63; TEMP 98.3
== END 2021-10-09 21:09 | disposition home or self-care (01) ==
LOC: INF 08:29
PROVIDERS: ATTEND Internal Medicine
DX: E86.0 Dehydration (principal)
CPT/HCPCS: 96360

== ENCOUNTER 2021-10-23 09:14 | Outpatient (CLI) | payer OTHER ==
[~2021-10-23] VITALS: Ht 177.8 cm; Wt 88.0 kg
[2021-10-23 10:01] VITALS: BP 134/64; TEMP 98.3
--- NOTE | 2021-10-23 10:01 | NUR ---
PT AMBULATED TO ROOM 1129 FOR OP INFUSION WITH ROLLATOR ACCOMPANIED BY HIS . VS OBTAINED
--- NOTE | 2021-10-23 10:10 | NUR ---
PAC TO LCW ACCESSED WITH 20G MONROE BLOOD ASPIRATED AND FLUSHED WITH 10ML NS.
== END 2021-10-23 21:16 | disposition home or self-care (01) ==
LOC: INF 09:14
PROVIDERS: ATTEND Internal Medicine
DX: E86.0 Dehydration (principal)
CPT/HCPCS: 96360

== ENCOUNTER 2021-11-05 13:59 | Outpatient (CLI) | payer OTHER ==
[~2021-11-05] VITALS: Ht 177.8 cm; Wt 89.8 kg
[2021-11-05 14:08] VITALS: BP 150/66; TEMP 98.7
[2021-11-05 15:55] VITALS: BP 148/69; TEMP 98.2
--- NOTE | 2021-11-05 18:17 | NUR ---
1408 PT AMBULATED TO ROOM 1107 USING A ROLLATOR ACCOMPANIED BY HIS FOR OP INFUSION. VS OBTAINED. PAC TO LCW ACCESS WITH 20G MONROE NEEDLE FLUSHED WITH 10 ML NS. 1555 INFUSION COMPLETED. PAC FLUSHED WITH HEPARIN PER PROTOCOL. 20G MONROE D/C INTACT SITE CARE PROVIDED. PT TOLERATED INFUSION WITH NO COMLICATIONS. NO ADVERSE REACTIONS SUSPECTED. 1559 PT AMBULATED OUT OF FACILITY WITH ROLLATOR ACCOMPANIED BY HIS IN NO DISTRESS.
== END 2021-11-05 19:08 | disposition home or self-care (01) ==
LOC: INF 13:59
PROVIDERS: ATTEND Internal Medicine
DX: E86.0 Dehydration (principal)
CPT/HCPCS: 96360

== ENCOUNTER 2021-11-20 11:34 | Outpatient (CLI) | payer OTHER ==
[~2021-11-20] VITALS: Ht 177.8 cm; Wt 88.0 kg
[2021-11-20 12:00] VITALS: BP 160/67; TEMP 98
--- NOTE | 2021-11-20 12:36 | NUR ---
1200 PT AMBULATED TO ROOM 1128 WITH ROLLATOR FOR OP INFUSION ACCOMPANIED BY HIS . VS OBTAINED. PAC LCW ACCESSED WITH 20GHUBER PT TOLERATED WITH NO DIFFICULTIES. 1227 NS STARTED AT THIS TIME AT 999ML/HR
--- NOTE | 2021-11-20 12:39 | NUR ---
PT TOLERATING INFUSION WITH NO COMPLICATIONS
--- NOTE | 2021-11-20 13:14 | NUR ---
1303 INFUSION COMPLETED AT THIS TIME. PT TOLERATED WELL WITH NO COMPLICATIONS. PAC FLUSHED WITH HEPARIN PER PROTOCOL. 20G MONROE REMOVED FROM PAC TO LCW SITE CARE PROVIDED.
[2021-11-20 13:15] VITALS: BP 145/66; TEMP 98.1
--- NOTE | 2021-11-20 16:35 | NUR ---
1324 PT AMBUL;ATED OUT OF FACILITY WITH HIS IN NO DISTRESS
== END 2021-11-20 21:36 | disposition home or self-care (01) ==
LOC: INF 11:34
PROVIDERS: ATTEND Internal Medicine
DX: E86.0 Dehydration (principal)
CPT/HCPCS: 96360; 96375

== ENCOUNTER 2021-12-03 10:06 | Emergency (ER) | payer OTHER ==
[~2021-12-03] VITALS: Ht 177.8 cm; Wt 88.0 kg
[2021-12-03 10:29] VITALS: TEMP 101
[2021-12-03 11:59] LABS: POTASSIUM 5.9 mmol/L (3.6-5.2)
[2021-12-03 12:18] LABS: PLATELET COUNT 170 K/uL (142-355)
[2021-12-03 12:28] LABS: PARTIAL THROMBOPLASTIN TIME 32.4 SECONDS (24.5-33.6)
[2021-12-03 16:57] VITALS: BP 159/84
== END 2021-12-03 17:01 | disposition short-term general hospital (02) ==
LOC: ED 10:06
PROVIDERS: Hospitalist
DX: U07.1 COVID-19 (principal); J12.82 Pneumonia due to coronavirus disease 2019; N18.6 End stage renal disease; Z99.2 Dependence on renal dialysis; R50.9 Fever, unspecified; R06.02 Shortness of breath
CPT/HCPCS: 36600; 80053; 82550; 82805; 83605; 83880; 84484; 85027; 85610; 85730; 87040; 87635; 93005; 96365; 96375; 99284; J1940; J2543; U0003

== ENCOUNTER 2021-12-18 09:57 | Outpatient (CLI) | payer OTHER ==
[~2021-12-18] VITALS: Ht 177.8 cm; Wt 88.0 kg
== END 2021-12-18 23:00 | disposition home or self-care (01) ==
LOC: INF 09:57
PROVIDERS: ATTEND Internal Medicine
DX: E86.0 Dehydration (principal)
CPT/HCPCS: 96360

== ENCOUNTER 2022-01-01 09:36 | Outpatient (CLI) | payer OTHER ==
[~2022-01-01] VITALS: Ht 177.8 cm; Wt 88.0 kg
[2022-01-01 09:41] VITALS: BP 139/63; TEMP 98.4
--- NOTE | 2022-01-01 10:45 | NUR ---
0941 PT AMBLATED TO ROOM 1126 USING ROLLATOR ACCOMPANIED BY HIS FOR OP INFUSION. VS OBTAINED. 20G WINGED MONROE NEEDLE USED TO ACCESS PAC TO LCW. BLOOD ASPIRAITED AND SITE FLUSHED WITH 10ML NS SECURED WITH TEGADERM. 0957 INFUSION STARTED AT THIS TIME WITH NO COMPLICATIONS. 1010 PT TOLERATING INFUSION WITH NO DIFFICULTIES. SITE WNL. REMAINS IN ROOM WITH PT. 1036 INFUSION COMPLETED AT THIS TIME.
[2022-01-01 11:06] VITALS: BP 143/63; TEMP 98.2
--- NOTE | 2022-01-01 11:06 | NUR ---
PAC TO LCW FLUSHED WITH HEPARIN PER PROTOCOL. 20G MONROE D/C INTACT SITE CARE PROVIDED. PT TOLERATED WELL
--- NOTE | 2022-01-01 11:08 | NUR ---
PT AMBULATED OUT OF FACILITY USING ROLLATOR TO POV ACCOMPANIED BY HIS IN NO DISTRESS.
== END 2022-01-01 19:06 | disposition home or self-care (01) ==
LOC: INF 09:36
PROVIDERS: ATTEND Internal Medicine
DX: E86.0 Dehydration (principal)
CPT/HCPCS: 96360; 96375

== ENCOUNTER 2022-01-15 09:49 | Outpatient (CLI) | payer OTHER ==
[~2022-01-15] VITALS: Ht 177.8 cm; Wt 88.0 kg
[2022-01-15 10:15] VITALS: BP 110/56; TEMP 98.5
[2022-01-15 11:40] VITALS: BP 137/68; TEMP 98.3
== END 2022-01-15 21:28 | disposition home or self-care (01) ==
LOC: INF 09:49
PROVIDERS: ATTEND Internal Medicine
DX: E86.0 Dehydration (principal)
CPT/HCPCS: 96365; 96375

== ENCOUNTER 2022-01-29 09:38 | Outpatient (CLI) | payer OTHER ==
[~2022-01-29] VITALS: Ht 177.8 cm; Wt 88.9 kg
[2022-01-29 10:11] VITALS: BP 115/73; TEMP 98.4
[2022-01-29 11:15] VITALS: BP 126/77; TEMP 98.3
== END 2022-01-29 19:03 | disposition home or self-care (01) ==
LOC: INF 09:38
PROVIDERS: ATTEND Internal Medicine
DX: E86.0 Dehydration (principal)
CPT/HCPCS: 96360; 96375; J1642

== ENCOUNTER 2022-02-12 09:30 | Outpatient (CLI) | payer OTHER ==
[~2022-02-12] VITALS: Ht 177.8 cm; Wt 88.0 kg
[2022-02-12 10:22] VITALS: BP 143/62; TEMP 98.5
== END 2022-02-12 18:51 | disposition home or self-care (01) ==
LOC: INF 09:30
PROVIDERS: ATTEND Internal Medicine
DX: E86.0 Dehydration (principal)
CPT/HCPCS: 96361; 96374

== ENCOUNTER 2022-02-26 08:38 | Outpatient (CLI) | payer OTHER ==
[~2022-02-26] VITALS: Ht 177.8 cm; Wt 88.0 kg
[2022-02-26 08:45] VITALS: BP 159/68; TEMP 98.1
[2022-02-26 09:42] VITALS: BP 153/66; TEMP 98.2
== END 2022-02-26 18:59 | disposition home or self-care (01) ==
LOC: INF 08:38
PROVIDERS: ATTEND Internal Medicine
DX: E86.0 Dehydration (principal)
CPT/HCPCS: 96361; 96374

== ENCOUNTER 2022-03-12 10:23 | Outpatient (CLI) | payer OTHER ==
[~2022-03-12] VITALS: Ht 180.3 cm; Wt 88.5 kg
[2022-03-12 10:30] VITALS: BP 175/83; TEMP 97.9
[2022-03-12 11:22] VITALS: BP 175/79; TEMP 98.4
== END 2022-03-12 18:58 | disposition home or self-care (01) ==
LOC: INF 10:23
PROVIDERS: ATTEND Internal Medicine
DX: E86.0 Dehydration (principal)
CPT/HCPCS: 96361; 96374

== ENCOUNTER 2022-03-24 09:29 | Outpatient (CLI) | payer OTHER ==
[~2022-03-24] VITALS: Ht 177.8 cm; Wt 87.1 kg
== END 2022-03-24 19:36 | disposition home or self-care (01) ==
LOC: INF 09:29
PROVIDERS: ATTEND Internal Medicine
DX: E86.0 Dehydration (principal)
CPT/HCPCS: 96361; 96374

== ENCOUNTER 2022-04-09 10:04 | Outpatient (CLI) | payer OTHER ==
[~2022-04-09] VITALS: Ht 177.8 cm; Wt 87.1 kg
[2022-04-09 10:14] VITALS: BP 107/68; TEMP 98.2
[2022-04-09 11:40] VITALS: BP 171/79; TEMP 97.9
== END 2022-04-09 18:57 | disposition home or self-care (01) ==
LOC: INF 10:04
PROVIDERS: ATTEND Internal Medicine
DX: E86.0 Dehydration (principal)
CPT/HCPCS: 96361; 96374

== ENCOUNTER 2022-04-15 09:46 | Outpatient (CLI) | payer OTHER ==
[~2022-04-15] VITALS: Ht 177.8 cm; Wt 87.1 kg
[2022-04-15 09:52] VITALS: BP 139/68; TEMP 98.3
[2022-04-15 11:21] VITALS: BP 166/78; TEMP 98.4
== END 2022-04-15 21:34 | disposition home or self-care (01) ==
LOC: INF 09:46
PROVIDERS: ATTEND Internal Medicine
DX: E86.0 Dehydration (principal)
CPT/HCPCS: 96361; 96374

== ENCOUNTER 2022-04-22 10:13 | Outpatient (CLI) | payer OTHER ==
[~2022-04-22] VITALS: Ht 177.8 cm; Wt 87.1 kg
[2022-04-22 10:18] VITALS: BP 138/67; TEMP 98.5
[2022-04-22 11:48] VITALS: BP 165/77; TEMP 98.2
== END 2022-04-22 18:51 | disposition home or self-care (01) ==
LOC: INF 10:13
PROVIDERS: ATTEND Internal Medicine
DX: E86.0 Dehydration (principal)
CPT/HCPCS: 96361; 96374

== ENCOUNTER 2022-04-30 11:04 | Outpatient (CLI) | payer OTHER ==
[~2022-04-30] VITALS: Ht 177.8 cm; Wt 87.1 kg
[2022-04-30 11:09] VITALS: BP 138/69; TEMP 98.6
[2022-04-30 12:58] VITALS: BP 142/72; TEMP 98.3
== END 2022-04-30 19:53 | disposition home or self-care (01) ==
LOC: INF 11:04
PROVIDERS: ATTEND Internal Medicine
DX: E86.0 Dehydration (principal)
CPT/HCPCS: 96361; 96374

== ENCOUNTER 2022-05-14 10:23 | Outpatient (CLI) | payer OTHER ==
[~2022-05-14] VITALS: Ht 177.8 cm; Wt 87.1 kg
[2022-05-14 10:51] VITALS: BP 126/64; TEMP 98.2
[2022-05-14 12:20] VITALS: BP 153/73; TEMP 98.2
== END 2022-05-14 19:14 | disposition home or self-care (01) ==
LOC: INF 10:23
PROVIDERS: ATTEND Internal Medicine
DX: E86.0 Dehydration (principal)
CPT/HCPCS: 96361; 96374

== ENCOUNTER 2022-05-21 10:00 | Outpatient (CLI) | payer OTHER ==
[~2022-05-21] VITALS: Ht 177.8 cm; Wt 86.2 kg
[2022-05-21 10:53] VITALS: BP 111/54; TEMP 98.5
[2022-05-21 12:38] VITALS: BP 137/63; TEMP 98.3
== END 2022-05-21 19:28 | disposition home or self-care (01) ==
LOC: INF 10:00
PROVIDERS: ATTEND Internal Medicine
DX: E86.0 Dehydration (principal)
CPT/HCPCS: 96361; 96374

== ENCOUNTER 2022-05-31 12:06 | Outpatient (CLI) | payer OTHER ==
[~2022-05-31] VITALS: Ht 177.8 cm; Wt 83.9 kg
[2022-05-31 13:02] VITALS: BP 132/62; TEMP 97.9
== END 2022-05-31 20:21 | disposition home or self-care (01) ==
LOC: INF 12:06
PROVIDERS: ATTEND Internal Medicine
DX: E86.0 Dehydration (principal)
CPT/HCPCS: 96365

== ENCOUNTER 2022-06-04 10:31 | Outpatient (CLI) | payer OTHER ==
[~2022-06-04] VITALS: Ht 177.8 cm; Wt 87.1 kg
[2022-06-04 10:38] VITALS: BP 110/50; TEMP 98.3
[2022-06-04 12:08] VITALS: BP 124/55; TEMP 98.2
== END 2022-06-04 19:25 | disposition home or self-care (01) ==
LOC: INF 10:31
PROVIDERS: ATTEND Internal Medicine
DX: E86.0 Dehydration (principal)
CPT/HCPCS: 96374

== ENCOUNTER 2022-06-11 10:38 | Outpatient (CLI) | payer OTHER ==
[~2022-06-11] VITALS: Ht 177.8 cm; Wt 87.1 kg
[2022-06-11 10:43] VITALS: BP 147/71; TEMP 97.8
== END 2022-06-11 21:21 | disposition home or self-care (01) ==
LOC: INF 10:38
PROVIDERS: ATTEND Internal Medicine
DX: E86.0 Dehydration (principal)
CPT/HCPCS: 96361; 96374

== ENCOUNTER 2022-06-18 10:16 | Outpatient (CLI) | payer OTHER ==
[~2022-06-18] VITALS: Ht 177.8 cm; Wt 89.4 kg
[2022-06-18 10:44] VITALS: BP 125/57; TEMP 98.1
[2022-06-18 12:06] VITALS: BP 140/67; TEMP 97.7
== END 2022-06-18 18:56 | disposition home or self-care (01) ==
LOC: INF 10:16
PROVIDERS: ATTEND Internal Medicine
DX: E86.0 Dehydration (principal)
CPT/HCPCS: 96361; 96374

== ENCOUNTER 2022-06-25 10:32 | Outpatient (CLI) | payer OTHER ==
[~2022-06-25] VITALS: Ht 177.8 cm; Wt 89.4 kg
[2022-06-25 10:35] VITALS: BP 142/64; TEMP 97.9
== END 2022-06-25 22:52 | disposition home or self-care (01) ==
LOC: INF 10:32
PROVIDERS: ATTEND Internal Medicine
DX: E86.0 Dehydration (principal)
CPT/HCPCS: 96360

== ENCOUNTER 2022-07-02 10:19 | Outpatient (CLI) | payer OTHER ==
[~2022-07-02] VITALS: Ht 177.8 cm; Wt 66.7 kg
[2022-07-02 10:26] VITALS: BP 151/69; TEMP 97.8
[2022-07-02 12:06] VITALS: BP 162/81; TEMP 97.9
== END 2022-07-02 19:30 | disposition home or self-care (01) ==
LOC: INF 10:19
PROVIDERS: ATTEND Internal Medicine
DX: E86.0 Dehydration (principal)
CPT/HCPCS: 96365

== ENCOUNTER 2022-09-06 13:42 | Outpatient (CLI) | payer OTHER | END 2022-09-06 20:44 | disposition home or self-care (01) | LOC: RAD 13:42 | PROVIDERS: ATTEND Physician Assistant | DX: M25.511 Pain in right shoulder (principal) ==

== ENCOUNTER 2022-09-14 12:59 | Outpatient (CLI) | payer OTHER | END 2022-09-14 19:08 | disposition home or self-care (01) | LOC: CT 12:59 | PROVIDERS: ATTEND Internal Medicine Pulmonary Disease | DX: Z12.2 Encounter for screening for malignant neoplasm of respiratory organs (principal); Z87.891 Personal history of nicotine dependence ==

== ENCOUNTER 2022-09-21 12:08 | Outpatient (CLI) | payer OTHER | END 2022-09-21 21:57 | LOC: RAD 12:08 | PROVIDERS: ATTEND Internal Medicine | DX: J42 Unspecified chronic bronchitis (principal) ==

== ENCOUNTER 2022-10-07 20:57 | Emergency (ER) | payer OTHER ==
[~2022-10-07] VITALS: Ht 177.8 cm; Wt 90.7 kg
[2022-10-07 22:20] VITALS: BP 143/77; TEMP 97.6
== END 2022-10-07 22:20 | disposition home or self-care (01) ==
LOC: ED 20:57
DX: S42.202A Unspecified fracture of upper end of left humerus, initial encounter for closed fracture (principal); W19.XXXA Unspecified fall, initial encounter; I10 Essential (primary) hypertension
CPT/HCPCS: 99283

== ENCOUNTER 2022-10-15 12:59 | Outpatient (CLI) | payer OTHER ==
[~2022-10-15] VITALS: Ht 177.8 cm; Wt 90.7 kg
[2022-10-15 13:10] VITALS: BP 133/62; TEMP 97.8
== END 2022-10-15 20:51 | disposition home or self-care (01) ==
LOC: INF 12:59
PROVIDERS: ATTEND Internal Medicine
DX: E86.0 Dehydration (principal)
CPT/HCPCS: 96365

== ENCOUNTER 2022-10-20 11:22 | Outpatient (CLI) | payer OTHER ==
[~2022-10-20] VITALS: Ht 177.8 cm; Wt 90.7 kg
[2022-10-20 11:29] VITALS: BP 147/65; TEMP 98.1
[2022-10-20 13:10] VITALS: BP 160/73; TEMP 97.7
== END 2022-10-20 20:08 | disposition home or self-care (01) ==
LOC: INF 11:22
PROVIDERS: ATTEND Internal Medicine
DX: E86.0 Dehydration (principal)

== ENCOUNTER 2022-10-29 14:03 | Outpatient (CLI) | payer OTHER | END 2022-10-29 19:09 | disposition home or self-care (01) | LOC: RAD 14:03 | PROVIDERS: ATTEND Physician Assistant | DX: M25.531 Pain in right wrist (principal); M25.512 Pain in left shoulder ==

== ENCOUNTER 2022-11-10 10:21 | Outpatient (CLI) | payer OTHER ==
[~2022-11-10] VITALS: Ht 165.1 cm; Wt 90.7 kg
[2022-11-10 10:45] VITALS: BP 150/68; TEMP 98.3
[2022-11-10 12:27] VITALS: BP 161/74; TEMP 97.9
== END 2022-11-10 19:57 | disposition home or self-care (01) ==
LOC: RAD 10:21 → INF 10:21
PROVIDERS: ATTEND Internal Medicine
DX: R06.01 Orthopnea (principal); E86.0 Dehydration
CPT/HCPCS: 96360

== ENCOUNTER 2022-11-13 16:26 | Emergency (ER) | payer OTHER ==
[~2022-11-13] VITALS: Ht 165.1 cm; Wt 90.7 kg
[2022-11-13 16:40] VITALS: BP 168/80; TEMP 99.4
[2022-11-13 17:24] LABS: PLATELET COUNT 277 K/uL (142-355)
[2022-11-13 17:27] LABS: POTASSIUM 3.8 mmol/L (3.6-5.2)
== END 2022-11-13 18:24 | disposition home or self-care (01) ==
LOC: ED 16:26
PROVIDERS: Family Medicine
DX: R53.1 Weakness (principal); N18.6 End stage renal disease
CPT/HCPCS: 36415; 80053; 85027; 99283; J1642

== ENCOUNTER 2022-12-13 10:59 | Outpatient (CLI) | payer OTHER ==
[~2022-12-13] VITALS: Ht 177.8 cm; Wt 89.4 kg
[2022-12-13 12:40] VITALS: BP 155/72; TEMP 98
== END 2022-12-13 20:22 | disposition home or self-care (01) ==
LOC: INF 10:59
PROVIDERS: ATTEND Internal Medicine Nephrology
DX: E86.0 Dehydration (principal)
CPT/HCPCS: 96365; 96375; J1642

== ENCOUNTER 2022-12-28 10:26 | Outpatient (CLI) | payer OTHER ==
[~2022-12-28] VITALS: Ht 177.8 cm; Wt 89.4 kg
[2022-12-28 10:33] VITALS: BP 153/65; TEMP 98.4
== END 2022-12-28 22:04 | disposition home or self-care (01) ==
LOC: INF 10:26
PROVIDERS: ATTEND Internal Medicine Endocrinology, Diabetes & Metabolism
DX: E86.0 Dehydration (principal)
CPT/HCPCS: 96360

== ENCOUNTER 2023-01-06 10:51 | Outpatient (CLI) | payer OTHER ==
[~2023-01-06] VITALS: Ht 165.1 cm; Wt 68.0 kg
[2023-01-06 10:55] VITALS: BP 139/64; TEMP 98.2
== END 2023-01-06 18:46 | disposition home or self-care (01) ==
LOC: INF 10:51
PROVIDERS: ATTEND Internal Medicine Endocrinology, Diabetes & Metabolism
DX: E86.0 Dehydration (principal)
CPT/HCPCS: 96360

== ENCOUNTER 2023-02-08 12:45 | Outpatient (CLI) | payer OTHER ==
[~2023-02-08] VITALS: Ht 177.8 cm; Wt 89.4 kg
== END 2023-02-08 19:05 | disposition home or self-care (01) ==
LOC: INF 12:45
PROVIDERS: ATTEND Internal Medicine Endocrinology, Diabetes & Metabolism
DX: E86.0 Dehydration (principal)